=== PATIENT | female | born 1990 | race Caucasian/White ===

== ENCOUNTER 2025-01-08 20:18 | Emergency (ER) | payer BC, SELFPAY ==
[2025-01-08 20:21] VITALS: BP 136/96; PULSE 78; RESP 18; TEMP 36.3; O2SAT 100; BMI 23.3
--- NOTE | 2025-01-08 20:34 | CT_ITS ---
PROCEDURE: ABDOMEN/PELVIS W IV CONT ONLY 01/08/2025 REASON FOR EXAM: ABDOMINAL PAIN AND BLOATING TECHNIQUE: Abdomen and pelvis CT with intravenous contrast. Coronal and Sagittal reconstruction series were provided. PATIENT PREPARATION: Per protocol ORAL CONTRAST TYPE: None. AMOUNT: mL CONTRAST: Isovue 370 VOLUME: 75 mL Not Provided Gauge IV One or more dose reduction techniques were used (e.g., Automated exposure control, adjustment of the mA and/or kV according to patient size, use of iterative reconstruction technique. RADIATION DOSE SUMMARY: CTDlvol: 23 mGy DLP: 510 mGycm COMPARISON: None FINDINGS: Lung bases: Unremarkable. Liver: Normal size. No mass. Gallbladder: Unremarkable Spleen: Normal size. Pancreas: Normal size without evidence of mass surrounding inflammation or ductal dilation. Adrenals: Unremarkable Kidneys: Normal renal sizes. No hydronephrosis. Bladder: Decompressed. Reproductive Organs: Surgically absent Bowel: Evaluation of the bowel loops are limited due to lack of oral contrast. Stomach is unremarkable. Most of the small bowel is completely decompressed limiting evaluation. No inflammatory changes of the large bowel is demonstrated. Appendix: Unremarkable Lymph nodes: Unremarkable. Vasculature: The abdominal aorta and IVC are normal. Peritoneum / Retroperitoneum: No free air or free fluid. Bones: Unremarkable CT/Abdomen/Pelvis W IV Cont ONLY IMPRESSION: No acute findings are demonstrated. Reading Location: [facility]
--- NOTE | 2025-01-08 20:34 | ED.VIS.GI ---
HPI HPI - GI History of Present Illness Chief Complaint: Nausea/Vomiting Narrative Narrative: 34-year-old female presents with her mother because of nausea, vomiting, and abdominal pain that she has had for about a week. She relates history that approximately 8 days ago on Friday, she had a hamburger without a bun. She began feeling pain in her abdomen and experienced nausea and vomiting. She had an appointment coming up with her primary care provider and waited till Friday, but ended up being seen at an emergency department in [place]. She states that she had a CT performed and that her lab work showed signs of inflammation or infection and they put her on antibiotics but although she may have had an obstruction/bowel obstruction they sent her home. She states that she has been worsening since then. While she has not vomited in the last 24 hours, she has more left lower quadrant abdominal pain and she feels more bloated. Her pain can be diffusely throughout her abdomen as well. She is unable to have a bowel movement. She has had decreased appetite as well. PFSH PFS Home Medications ?Medication ?Instructions ?Recorded ?Last Taken ?Type NK 01/08/25 Unknown History Allergy/AdvReac Type Severity Reaction Status Date / Time topiramate (From Topamax) Allergy Other Verified 01/08/25 20:21 Family History no significant family his Surgical History History of delivery Social History Smoking Status: Former smoker ROS ROS ED ROS Narrative Constitutional: No fever, no chills. Decreased appetite. Cardiovascular: No chest pain. No palpitations. No pedal edema. Respiratory: No cough, no shortness of breath. Abdominal: Positive diffuse to left lower quadrant abdominal pain. Positive nausea. No vomiting in last 24 hours. Positive abdominal bloating. Genitourinary: No dysuria. No hematuria. EXAM Physical Exam Narrative Exam Narrative: Afebrile. Vital signs noted. Nontoxic-appearing. Cardiovascular examination reveals a regular rate and rhythm. Lungs are clear to auscultation bilaterally. The abdomen is soft with mild tenderness palpation diffusely but especially in left lower quadrant without guarding or rebound. Hypoactive bowel sounds. Neurological examination is nonfocal and nonlateralizing. Const Vital Signs: 01/08/25 20:21 01/08/25 22:18 01/08/25 23:28 Temperature 97.3 F L 97.8 F Temperature Source Temporal Pulse Rate 78 79 80 Respiratory Rate 18 16 16 Blood Pressure 136/96 H 127/91 H 116/91 H Blood Pressure Mean 109 103 99 Pulse Ox 100 100 98 Oxygen Delivery Method Room Air Room Air MDM MDM MDM Narrative Medical decision making narrative: Differential diagnosis includes but not limited to gastroenteritis versus ileus versus bowel obstruction. Patient does have past medical/surgical history of C-sections and hysterectomy so concern could be for bowel obstruction from adhesions. Also the differential diagnosis would be diverticulitis versus ureterolithiasis versus pyelonephritis. Given that she has had ongoing pain since 8 days ago, there is also concern for intra-abdominal abscess as well, but she has been on antibiotics according to the patient and her mother. She was administered a bolus of IV fluids as well as ondansetron. I do feel CT imaging is indicated. I reviewed her laboratory work and she has a normal white count of 5.9, no signs of infection or inflammation, hemoglobin normal at 13.5, hematocrit 40.6, platelet count 299. CMP is grossly unremarkable with a normal glucose of 92, sodium normal at 139 and potassium 4.2 with chloride 101. LFTs are grossly unremarkable. Lipase normal at 25 so I doubt pancreatitis. Urinalysis negative for infection, negative for ketones. I do not feel further antibiotics are indicated. I reviewed the radiology report of the CT of the abdomen and pelvis and there is no acute process. At this point in time, she states her nausea has resolved. I offered to write her for more medication but she states she still has some from her last visit at the outside facility. I do not feel she requires any further antibiotics that may be causing her gastritis and nausea. At this point in time, I feel she can be discharged to follow-up with her primary care provider. I do not feel that she requires hospitalization or observation. Return instructions to the emergency department were reviewed. Disposition is discharged home in stable condition. History & Record Review Discussion w/independent historian: Patient Lab Data Attestation: I reviewed the patient's lab results. Labs: Laboratory Results - last 24 hr 01/08/25 01/08/25 20:40 20:51 WBC 5.9 RBC 4.59 Hgb 13.5 Hct 40.6 MCV 88.5 MCH 29.4 MCHC 33.3 RDW Std Deviation 39.8 RDW Coeff of Jesse 12.3 Plt Count 299 MPV 9.6 Immature Gran % (Auto) 0.200 Neut % (Auto) 66.5 Lymph % (Auto) 22.7 [place] % (Auto) 5.4 Eos % (Auto) 4.7 Baso % (Auto) 0.5 Absolute Neuts (auto) 3.9 Absolute Lymphs (auto) 1.34 Nucleated RBC % 0 Sodium 139 Potassium 4.2 Chloride 101 Carbon Dioxide 27.7 Anion Gap 10 BUN 7 Creatinine 0.78 Estim Creat Clear Calc 88.59 Est GFR (MDRD) Non-Af 103 BUN/Creatinine Ratio 9.2 L Glucose 92 Calcium 9.4 Total Bilirubin 0.33 AST 27 ALT 18 Alkaline Phosphatase 60 Total Protein 7.0 Albumin 4.4 Globulin 2.7 Albumin/Globulin Ratio 1.6 Lipase 25 Urine Color Straw Urine Clarity Clear Urine pH 7.0 Ur Specific [place] 1.005 Urine Protein 15 H Urine Glucose (UA) Normal Urine Ketones Negative Urine Occult Blood Negative Urine Nitrite Negative Urine Bilirubin Negative Urine Urobilinogen Normal Ur Leukocyte Esterase Negative Urine RBC 0 SEEN Urine WBC 0 SEEN Ur Squamous Epith Cells 0-5 SEEN Urine Bacteria RARE Urine Mucus 0 SEEN Radiography Diagnostic Testing: Clinical Impression(s) from Imaging Studies Abdomen/Pelvis CT 01/08/25 20:34 IMPRESSION: No acute findings are demonstrated. Reading [facility] Triage Chief Complaint: Nausea/Vomiting Other Complaint: Constipation ED Provider: Moo Santos Dx/Rx/DC Orders Clinical Impression: Abdominal pain, Nausea Instructions: ED Abdominal Pain Unkn Cause Fem Prescriptions: No Action NK Primary Care Provider: Martha Hurt Referrals: Martha Hurt, [facility] [Primary Care Provider] - 3-5 Days if not improving Activity Restrictions/Additional Instructions: Return to the emergency department with increased pain, fever, new or worsening symptoms. Print Language: German Disposition Disposition: Home, Self Care
[2025-01-08] MEDS: Ondansetron 4 MG/2 ML Vial IV (20:42)
[2025-01-08] MEDS: 0.9% Normal Saline (1000mL) 1,000 ML 999 ML IV (20:42)
[2025-01-08 20:52] LABS: Absolute Lymphocyte Count 1.34 X10^3/uL (0.83-4.51); Absolute Neutrophil Count 3.9 X10^3/uL (2.0-7.7); Basophil# 0.03 X10^3/uL; Basophil% 0.5 % (0-1); Eosinophil# 0.28 X10^3/uL; Eosinophils% 4.7 % (0-5); Hematocrit 40.6 % (37-47); Hemoglobin 13.5 g/dL (12.0-15.0); Lymphocyte # 1.34 X10^3/ul (0.83-4.51); Lymphocyte % 22.7 % (19-41); Mean Corp Hgb Conc 33.3 g/dL (32-36); Mean Corpuscular Hgb 29.4 pg (27.0-32.0); Mean Corpuscular Volume 88.5 fL (81-99); Mean Platelet Vol. 9.6 fl (6.2-12.0); Monocyte# 0.32 X10^3/uL; Monocyte% 5.4 % (0-10); NRBC Flagged by Analyzer 0 % (0-5); Neutrophil # 3.93 X10^3/uL (2.7-7.7); Neutrophil % 66.5 % (47-70); Platelet Count 299 K/mm3 (150-450); RBC Distribution Width CV 12.3 % (11.6-14.6); RBC Distribution Width SD 39.8 fl (35.1-43.9); Red Blood Count 4.59 M/mm3 (4.2-5.4); White Blood Count 5.9 K/mm3 (4.4-11.0)
[2025-01-08 20:57] LABS: Mucous, Urine 0 SEEN /hpf (<or=2+); Red Blood Cells-Urine 0 SEEN /hpf (0-5); White Blood Cells 0 SEEN /hpf (0-5)
[2025-01-08 20:58] LABS: Color, Urine Straw (Yellow); Glucose, Dipstick Normal (Normal); Ketone-Dipstick Negative (Negative); Leukocyte Esterase-Dipstick Negative /ul (Negative); Nitrite-Dipstick Negative (Negative); Occult Blood-Urine Negative /ul (Negative); Protein-Dipstick 15 mg/dl (Negative); Specific Gravity, Urine 1.005 (1.002-1.030); Urine Bilirubin Dipstick Negative (Negative); Urine Clarity Clear (Clear); Urine Urobilinogen Normal (Normal)
[2025-01-08 21:16] LABS: Bacteria RARE /hpf (None Seen); Squamous Epithelial Cells - UA 0-5 SEEN /hpf (5-10)
[2025-01-08 21:18] LABS: ALB/GLOB Ratio 1.6 RATIO (0.9-2.4); AST(SGOT) 27 U/L (<=31); Alanine Aminotransfer ALT/SGPT 18 U/L (<=34); Albumin, Serum 4.4 g/dL (3.5-5.0); Alkaline Phosphatase 60 U/L (35-104); Anion Gap 10 (5-15); BUN 7 mg/dL (4-19); BUN/Creat Ratio 9.2 RATIO (10-20); Calcium,Total 9.4 mg/dL (7.6-11.0); Carbon Dioxide 27.7 mmol/L (21.0-32.0); Chloride 101 mmol/L (98-108); Creatinine, Serum 0.78 mg/dL (0.70-1.20); EST Glomerular Filtration Rate 103 (>60); Estimated Creatinine Clearance 88.59 ml/min (50-250); Globulin 2.7 g/dL (2.2-4.2); Glucose 92 mg/dL (70-99); Lipase 25 U/L (13-75); Potassium 4.2 mmol/L (3.3-5.1); Sodium Level 139 mmol/L (133-145); Total Bilirubin 0.33 mg/dL (0.00-1.30)
[2025-01-08 22:18] VITALS: BP 127/91; PULSE 79; RESP 16; O2SAT 100
[2025-01-08 23:28] VITALS: BP 116/91; PULSE 80; RESP 16; TEMP 36.6; O2SAT 98
== END 2025-01-08 23:31 | disposition home or self-care (01) ==
PROVIDERS: Emergency Provider Emergency Medicine; PCP Nurse Practitioner Family; Visit Provider Emergency Medicine
DX: R10.32 Left lower quadrant pain (principal); R11.0 Nausea; Z87.891 Personal history of nicotine dependence
CPT/HCPCS: 74177; 80053; 81001; 83690; 85025; 96361; 96374; 99284; Q9967; J2405